=== PATIENT | female | born 1955 | race Caucasian/White ===

== ENCOUNTER → 2016-03-14 | Outpatient (CLI) | payer BC ==
[~2016-03-14] MED LIST: ESTR0.455 PO; MULT-608 PO; OMEP40CA36 PO
--- NOTE | 2016-03-14 12:24 | Diagnostic Imaging Report ---
PA and lateral views of the chest Indication: Cough and fever Findings: The lungs are clear. The heart size is normal. There is no effusion or pneumothorax The mediastinum and slime appear unremarkable. Impression: Unremarkable study. Dictated by: Dictated on workstation # [id number]
== END ==
LOC: RAD 11:59
PROVIDERS: ATTEND Family Medicine
DX: R05 Cough (principal)
CPT/HCPCS: 71020

== ENCOUNTER → 2016-08-24 | Outpatient (CLI) | payer BC ==
--- NOTE | 2016-08-24 15:00 | Diagnostic Imaging Report ---
Bilateral screening mammogram. The current study was also evaluated with a Computer Aided Detection (CAD) system. INDICATION: Screening. No current complaints stated on the questionnaire. COMPARISON: 01/11/2015. FINDINGS: The breasts are composed of heterogeneously dense parenchyma which may decrease mammographic sensitivity. There are occasional benign-appearing calcifications seen. There is an asymmetry in the central aspect of the left MLO view seen measuring 7 mm. The right breast demonstrates no definite change. IMPRESSION: Dense breasts. Focal compression views to evaluate asymmetry in the central aspect of the left MLO view and bilateral breast ultrasound is recommended. ACR BI-RADS Category 0: Incomplete. (Needs additional imaging evaluation). Result letter will be mailed to the patient. Note: At least 10% of breast cancer is not imaged by mammography. Dictated by: Dictated on workstation # [id number]
== END ==
LOC: RAD 11:13
PROVIDERS: ATTEND Family Medicine
DX: Z12.31 Encounter for screening mammogram for malignant neoplasm of breast (principal); N64.89 Other specified disorders of breast
CPT/HCPCS: 77067

== ENCOUNTER → 2016-09-01 | Outpatient (CLI) | payer BC ==
--- NOTE | 2016-09-01 20:06 | Diagnostic Imaging Report ---
Left breast diagnostic mammogram. The current study was also evaluated with a Computer Aided Detection (CAD) system. INDICATION: Asymmetry along the central aspect of the left MLO view. FINDINGS: Focal compression view and true lateral projection are performed with less prominent asymmetry seen in favor of summation artifact of parenchyma. IMPRESSION: The asymmetry previously seen is likely related to summation artifact. Ultrasound evaluation is pending. ACR BI-RADS Category 0: Incomplete. (Needs additional imaging evaluation). Result letter will be mailed to the patient. Note: At least 10% of breast cancer is not imaged by mammography. Dictated by: Dictated on workstation # [id number]
--- NOTE | 2016-09-01 20:15 | Diagnostic Imaging Report ---
Bilateral breast ultrasound. INDICATION: Dense breasts. Asymmetry in the left breast. FINDINGS: The four quadrants and retroareolar region of each breast are scanned with no underlying abnormality seen. IMPRESSION: Negative study. Return to routine annual mammographic screening. ACR BI-RADS Category 1: Negative. Dictated by: Dictated on workstation # [id number]
== END ==
LOC: RAD 07:21
PROVIDERS: ATTEND Family Medicine
DX: N64.89 Other specified disorders of breast (principal)

== ENCOUNTER → 2017-08-31 | Outpatient (CLI) | payer BC ==
--- NOTE | 2017-08-31 17:57 | Diagnostic Imaging Report ---
INDICATION: Routine screening. COMPARISON: Prior study from 08/24/2016 and 01/11/2015. EXAMINATION: Bilateral digital screening mammogram with CAD. 3D tomographic images were obtained and reviewed. The current study was also evaluated with a Computer Aided Detection (CAD) system. FINDINGS: Both breasts are heterogeneously dense, limiting the sensitivity of mammography. The parenchymal pattern is stable. There are benign calcifications. No mass or malignant appearing microcalcifications are seen. The axillae are unremarkable. IMPRESSION: BI-RADS category 2. No mammographic features suspicious for malignancy are identified. Dictated by: Dictated on workstation # [id number]
== END ==
LOC: RAD 07:41
PROVIDERS: ATTEND Family Medicine
DX: Z12.31 Encounter for screening mammogram for malignant neoplasm of breast (principal)
CPT/HCPCS: 77067

== ENCOUNTER → 2018-08-30 | Outpatient (CLI) | payer BC ==
--- NOTE | 2018-08-30 11:27 | Diagnostic Imaging Report ---
INDICATION: Left index finger pain FINDINGS: Three views of the left index finger shows osteoarthritic changes of the DIP joint. There is a tiny calcification on the lateral aspect of the PIP joint. The small calcification measures 1 mm in diameter. It could represent a small cortical avulsion. IMPRESSION: Questionable tiny cortical avulsion fracture on the lateral aspect of the PIP joint of the left index finger. Dictated by: Dictated on workstation # [id number]
== END ==
LOC: RAD 10:50
PROVIDERS: ATTEND Family Medicine
DX: M79.645 Pain in left finger(s) (principal)
CPT/HCPCS: 73140

== ENCOUNTER → 2018-09-04 | Outpatient (CLI) | payer BC ==
--- NOTE | 2018-09-04 13:40 | Diagnostic Imaging Report ---
INDICATION: Routine screening. COMPARISON: 08/31/2017 and 08/24/2016. TECHNIQUE: 2D and 3D bilateral screening mammography was performed with CAD. FINDINGS: Both breasts are heterogeneously dense, limiting the sensitivity of mammography. Benign calcifications are noted. No mass or malignant appearing microcalcifications are seen. The axillae are unremarkable. IMPRESSION: No mammographic features suspicious for malignancy are identified. ACR BI-RADS Category 2: Benign findings. Result letter will be mailed to the patient. Note: At least 10% of breast cancer is not imaged by mammography. Dictated by: Dictated on workstation # [id number]
== END ==
LOC: RAD 09:51
PROVIDERS: ATTEND Family Medicine
DX: Z12.31 Encounter for screening mammogram for malignant neoplasm of breast (principal)
CPT/HCPCS: 77067

== ENCOUNTER → 2019-09-08 | Outpatient (CLI) | payer BC ==
--- NOTE | 2019-09-09 12:41 | Diagnostic Imaging Report ---
INDICATION: Routine screening. Comparison is made with prior mammogram from 09/04/2018 and 08/31/2017. 2-D and 3-D bilateral screening mammography was performed with CAD. Both breasts are heterogeneous dense, limiting the sensitivity of mammography. The parenchymal pattern is stable. No mass or malignant appearing microcalcifications are seen. Axillae are unremarkable. IMPRESSION: BI-RADS Category 1 No mammographic features suspicious for malignancy are identified. ACR BI-RADS Category 1: Negative. Result letter will be mailed to the patient. Note: At least 10% of breast cancer is not imaged by mammography. Dictated by: Dictated on workstation # [id number]
== END ==
LOC: RAD 15:43
PROVIDERS: ATTEND Family Medicine
DX: Z12.31 Encounter for screening mammogram for malignant neoplasm of breast (principal)
CPT/HCPCS: 77063; 77067

== ENCOUNTER → 2020-09-08 | Outpatient (CLI) | payer BC ==
--- NOTE | 2020-09-08 14:14 | Diagnostic Imaging Report ---
INDICATION: Routine screening. Comparison is made with prior mammogram from 09/08/2019 and 09/04/2018. 2-D and 3-D bilateral screening mammography was performed with CAD. Both breasts are heterogeneously dense, limiting the sensitivity of mammography. No mass or malignant appearing microcalcifications are seen. Axillae are unremarkable. IMPRESSION: BI-RADS Category 1 No mammographic features suspicious for malignancy are identified. ACR BI-RADS Category 1: Negative. Result letter will be mailed to the patient. Note: At least 10% of breast cancer is not imaged by mammography. Dictated by: Dictated on workstation # [id number]
== END ==
LOC: RAD 09:44
PROVIDERS: ATTEND Family Medicine
DX: Z12.31 Encounter for screening mammogram for malignant neoplasm of breast (principal)
CPT/HCPCS: 77063; 77067

== ENCOUNTER 2020-10-29 12:36 | Emergency (ER) | payer BC ==
[~2020-10-29] VITALS: Ht 162 cm; Wt 74.8 kg
--- NOTE | 2020-10-29 12:50 | ED Chest Pain ---
General Chief Complaint: Chest Pain Stated Complaint: COUGH,CHEST TIGHTNESS Source: patient Exam Limitations: no limitations (TOSHA MCDANIEL APRN) History of Present Illness Date Seen by Provider: Oct 29, 2020 Time Seen by Provider: 12:00 Initial Comments To ER with nonproductive cough onset this morning as well as chest tightness and some shortness of breath. She has had both Moderna vaccinations and had a negative Covid test at [facility] this morning. She is employed at [employer]. She denies fevers but has had some hot flashes. Timing/Duration: 4-6 hours Severity/Quality: moderate Location: central Radiation: no radiation Activities at Onset: none ASA po MANAGER FINE DINING: No NTG SL MANAGER FINE DINING: No (TOSHA MCDANIEL APRN) Allergies and Home Medications Allergies Coded Allergies: Sulfa (Sulfonamide Antibiotics) (Unverified Allergy, Unknown, 01/04/11) Patient Home Medication List Home Medication List Reviewed: Yes (TOSHA MCDANIEL APRN) Azithromycin (Azithromycin) 250 Mg Tablet, 250 MG PO UD Prescribed by: TOSHA MCDANIEL on 10/29/20 1522 Estrogens,Conjugated (Premarin) 0.45 Mg Tablet, 0.315 MG PO DAILY, (Reported) Entered as Reported by: CHRISTINE ZARATE on 01/03/11 1257 Multivitamins (Multiple Vitamin) 1 Tab Tablet, 1 TAB PO DAILY, (Reported) Entered as Reported by: CHRISTINE ZARATE on 01/03/11 1257 Omeprazole (Omeprazole) 40 Mg Capsule.dr, 40 MG PO DAILY, (Reported) Entered as Reported by: JAMES WILLARD on 01/04/11 1057 Prednisone (Prednisone) 20 Mg Tab, 40 MG PO DAILY Prescribed by: TOSHA MCDANIEL on 10/29/20 1522 Review of Systems Review of Systems Constitutional: see HPI EENTM: No Symptoms Reported Respiratory: See HPI, Cough Cardiovascular: See HPI, Chest Pain Gastrointestinal: No Symptoms Reported Genitourinary: No Symptoms Reported Musculoskeletal: no symptoms reported Skin: no symptoms reported Psychiatric/Neurological: No Symptoms Reported Endocrine: No Symptoms Reported Hematologic/Lymphatic: No Symptoms Reported (TOSHA MCDANIEL APRN) Past Irkobfr-Rzxsqj-Tworus Hx Past Medical History Reproductive Disorders: No (TOSHA MCDANIEL APRN) Physical Exam Vital Signs Vital Signs - First Documented 10/29/20 12:40 Temp 36.5 Pulse 68 Resp 18 B/P (MAP) 128/87 (101) Pulse Ox 98 (PEARL MURILLO MD) Vital Signs Capillary Refill : (TOSHA MCDANIEL APRN) Height, Weight, BMI Height: '" Weight: lbs. oz. kg; BMI Method: General Appearance: No Apparent Distress, WD/WN Neck: Full Range of Motion, Normal Inspection Respiratory: Normal Breath Sounds, No Accessory Muscle Use, No Respiratory Distress Cardiovascular: Regular Rate, Rhythm, Normal Peripheral Pulses Gastrointestinal: Normal Bowel Sounds, Non Tender, Soft Extremity: Normal Capillary Refill, Normal Inspection Neurologic/Psychiatric: Alert, Oriented x3 Skin: Normal Color, Warm/Dry (TOSHA MCDANIEL APRN) Progress/Results/Core Measures Results/Orders Lab Results Laboratory Tests Test 10/29/20 12:45 10/29/20 14:50 Range/Units White Blood Count 6.3 4.3-11.0 10^3/uL Red Blood Count 4.78 3.80-5.11 10^6/uL Hemoglobin 14.0 11.5-16.0 g/dL Hematocrit 43 35-52 % Mean Corpuscular Volume 91 80-99 fL Mean Corpuscular Hemoglobin 29 25-34 pg Mean Corpuscular Hemoglobin Concent 32 32-36 g/dL Red Cell Distribution Width 12.7 10.0-14.5 % Platelet Count 278 130-400 10^3/uL Mean Platelet Volume 9.0 9.0-12.2 fL Immature Granulocyte % (Auto) 0 % Neutrophils (%) (Auto) 58 42-75 % Lymphocytes (%) (Auto) 31 12-44 % Monocytes (%) (Auto) 9 0-12 % Eosinophils (%) (Auto) 2 0-10 % Basophils (%) (Auto) 1 0-10 % Neutrophils # (Auto) 3.6 1.8-7.8 10^3/uL Lymphocytes # (Auto) 1.9 1.0-4.0 10^3/uL Monocytes # (Auto) 0.6 0.0-1.0 10^3/uL Eosinophils # (Auto) 0.1 0.0-0.3 10^3/uL Basophils # (Auto) 0.0 0.0-0.1 10^3/uL Immature Granulocyte # (Auto) 0.0 0.0-0.1 10^3/uL Prothrombin Time 12.1 L 12.2-14.7 SEC INR Comment 0.9 0.8-1.4 Activated Partial Thromboplast Time 31 24-35 SEC Sodium Level 139 135-145 MMOL/L Potassium Level 4.4 3.6-5.0 MMOL/L Chloride Level 105 98-107 MMOL/L Carbon Dioxide Level 25 21-32 MMOL/L Anion Gap 9 5-14 MMOL/L Blood Urea Nitrogen 13 7-18 MG/DL Creatinine 0.98 0.60-1.30 MG/DL Estimat Glomerular Filtration Rate 57 BUN/Creatinine Ratio 13 Glucose Level 91 70-105 MG/DL Calcium Level 9.8 8.5-10.1 MG/DL Corrected Calcium 9.6 8.5-10.1 MG/DL Magnesium Level 2.1 1.6-2.4 MG/DL Total Bilirubin 0.5 0.1-1.0 MG/DL Aspartate Amino Transf (AST/SGOT) 32 5-34 U/L Alanine Aminotransferase (ALT/SGPT) 22 0-55 U/L Alkaline Phosphatase 65 40-136 U/L Myoglobin 37.8 10.0-92.0 NG/ML Troponin I < 0.028 < 0.028 <0.028 NG/ML B-Type Natriuretic Peptide 152.1 H <100.0 PG/ML Total Protein 8.1 6.4-8.2 GM/DL Albumin 4.3 3.2-4.5 GM/DL SARS-CoV-2 RNA (RT-PCR) Not Detected Not Detecte (PEARL MURILLO MD) Medications Given in ED Current Medications Medications Dose Ordered Sig/Vanessa Route Start Time Stop Time Status Last Admin Dose Admin Aspirin 324 mg ONCE ONCE PO 10/29/20 13:00 10/29/20 13:01 DC 10/29/20 13:34 324 MG (PEARL MURILLO MD) Vital Signs/I&O 10/29/20 10/29/20 12:40 15:35 Temp 36.5 36.5 Pulse 68 65 Resp 18 18 B/P (MAP) 128/87 (101) 123/84 Pulse Ox 98 97 (PEARL MURILLO MD) Departure Communication (Admissions) EKG shows sinus rhythm at 65 normal intervals no ectopy no ST segment change (TOSHA MCDANIEL APRN) Impression Primary Impression: Chest pain Additional Impression: URI, acute Disposition: 01 HOME, SELF-CARE Condition: Stable Departure-Patient Inst. Decision time for Depature: 15:12 (TOSHA MCDANIEL APRN) Referrals: AVRIL CARMONA MD (PCP/Family) Primary Care Physician Patient Instructions: Upper Respiratory Infection ED Scripts Prednisone (Prednisone) 20 Mg Tab 40 MG PO DAILY, #6 TAB 0 Refills Prov: TOSHA MCDANIEL APRN 10/29/20 Azithromycin (Azithromycin) 250 Mg Tablet 250 MG PO UD, #6 TAB TAKE 2 TABLETS ON DAY ONE THEN TAKE 1 TABLET DAILY FOR FOUR MORE DAYS Prov: TOSHA MCDANIEL APRN 10/29/20 ATTENDING PHYSICIAN NOTE: I was physically present as attending physician in the emergency department during the care of this patient, but I was not directly involved in the decision making or delivery of care for this patient. (PEARL MURILLO MD) TOSHA MCDANIEL APRN Oct 29, 2020 12:50 PEARL MURILLO MD Oct 29, 2020 20:15
[2020-10-29 12:59] LABS: BASOPHILS % (AUTO) 1 % (0-10); EOSINOPHILS # (AUTO) 0.1 10^3/uL (0.0-0.3); EOSINOPHILS % (AUTO) 2 % (0-10); HEMATOCRIT 43 % (35-52); LYMPHOCYTES # (AUTO) 1.9 10^3/uL (1.0-4.0); LYMPHOCYTES % (AUTO) 31 % (12-44); MEAN CORPUSCULAR HEMOGLOBIN 29 pg (25-34); MEAN CORPUSCULAR HGB CONC 32 g/dL (32-36); MEAN CORPUSCULAR VOLUME 91 fL (80-99); MONOCYTES # (AUTO) 0.6 10^3/uL (0.0-1.0); MONOCYTES % (AUTO) 9 % (0-12); NEUTROPHILS # (AUTO) 3.6 10^3/uL (1.8-7.8); NEUTROPHILS % (AUTO) 58 % (42-75); PLATELET COUNT 278 10^3/uL (130-400); WHITE BLOOD COUNT 6.3 10^3/uL (4.3-11.0)
[2020-10-29] MEDS ORDERED: ASPIRIN 81 MG CHEW (CHILDREN'S ASA) PO ONE (13:00)
[2020-10-29 13:09] LABS: ALBUMIN 4.3 GM/DL (3.2-4.5); POTASSIUM 4.4 MMOL/L (3.6-5.0)
[2020-10-29 13:10] LABS: CALCIUM 9.8 MG/DL (8.5-10.1)
[2020-10-29 13:11] LABS: TOTAL PROTEIN 8.1 GM/DL (6.4-8.2)
[2020-10-29 13:12] LABS: INR 0.9 (0.8-1.4); PROTHROMBIN TIME PATIENT 12.1 SEC (12.2-14.7)
[2020-10-29 13:13] LABS: BILIRUBIN,TOTAL 0.5 MG/DL (0.1-1.0)
[2020-10-29 13:15] LABS: CREATININE SERUM 0.98 MG/DL (0.60-1.30)
--- NOTE | 2020-10-29 13:16 | Diagnostic Imaging Report ---
INDICATION: Chest pain. Frontal chest obtained at 12:59 p.m. and compared to 03/14/2016. Heart and mediastinal silhouette are normal in appearance. The lungs are clear. There is no pneumothorax or pleural fluid. IMPRESSION: Negative chest. Dictated by: Dictated on workstation # [id number]
[2020-10-29 13:18] LABS: MAGNESIUM 2.1 MG/DL (1.6-2.4)
[2020-10-29] MEDS ORDERED: RT-ALBUTEROL HFA 8.5 GM INHALER IH SCH (14:00)
[2020-10-29] MEDS ORDERED: AZIT250T12 PO (15:22)
[2020-10-29] MEDS ORDERED: PRD20T PO (15:22)
[2020-10-29 15:35] VITALS: BP 123/84
== END 2020-10-29 15:35 | disposition home or self-care (01) ==
LOC: EDUNIT# 12:36 → ER 12:38
DX: R07.9 Chest pain, unspecified (principal); J06.9 Acute upper respiratory infection, unspecified; Z20.822 Contact with and (suspected) exposure to COVID-19
CPT/HCPCS: 36415; 71045; 80053; 83735; 83874; 83880; 84484; 85025; 85610; 85730; 87636; 93005; 93041

== ENCOUNTER → 2021-10-27 | Outpatient (CLI) | payer MEDICARE, OTHER ==
[~2021-10-27] MED LIST changes: +AZIT250T12 PO; +PRD20T PO
--- NOTE | 2021-10-28 08:55 | Diagnostic Imaging Report ---
3-D bilateral screening mammogram with CAD. COMPARISON: This study was compared to the prior exams of 09/04/2018, 09/08/2019 and 09/08/2020. At this time, there are no current complaints. TECHNIQUE: 3-D bilateral screening mammogram The current study was also evaluated with a Computer Aided Detection (CAD) system. COMPARISON: FINDINGS: The fibroglandular tissue in both breasts is heterogeneously dense. This does limit the sensitivity of this exam. Overall, there does not appear to have been any significant change when compared to the prior study. No primary or secondary sign of malignancy is noted. IMPRESSION: There is no radiographic evidence for malignancy. BI-RADS CATEGORY 1 NEGATIVE. ACR BI-RADS Category 1: Negative. Result letter will be mailed to the patient. Note: At least 10% of breast cancer is not imaged by mammography. Dictated by: Dictated on workstation # [id number]
== END ==
LOC: RAD 07:21
PROVIDERS: ATTEND Family Medicine
DX: Z12.31 Encounter for screening mammogram for malignant neoplasm of breast (principal)
CPT/HCPCS: 77063; 77067